=== PATIENT | female | born 1970 | race African-American/Black ===

== ENCOUNTER 2022-09-02 11:15 | Emergency (ER) | payer MEDICARE, MEDICAID, SELFPAY ==
[2022-09-02 11:36] VITALS: BP 161/85; PULSE 78; RESP 16; TEMP 36.9; O2SAT 98
--- NOTE | 2022-09-02 11:48 | ED.FEMALEGU ---
HPI - Female Genitourinary General Chief complaint: Urogenital-Female Stated complaint: UTI Time Seen by Provider: 09/02/22 11:50 Source: patient and RN notes reviewed Mode of arrival: ambulatory Limitations: no limitations History of Present Illness HPI Narrative: 51-year-old female with history of kidney transplant presents with concern for vaginal irritation, dysuria, frequency. She denies fever, aches, chills, sweats. Reports frequent urinary tract infections, her last 1 was about 4 months ago. She reports she did have unprotected sex last week, she was not aware of any exposure to any STD. MD elicited complaint: dysuria Related Data Home Medications Medication Instructions Recorded Confirmed allopurinol 100 mg tablet 200 mg PO DAILY 09/02/22 09/02/22 amlodipine 10 mg tablet 10 mg PO DAILY 09/02/22 09/02/22 calcitriol 0.25 mcg capsule 0.25 mcg PO DAILY 09/02/22 09/02/22 carvedilol 12.5 mg tablet 12.5 mg PO BID 09/02/22 09/02/22 cholecalciferol (vitamin D3) 50 50 mcg PO DAILY 09/02/22 09/02/22 mcg (2,000 unit) tablet clonidine HCl 0.1 mg tablet 0.1 mg PO TID 09/02/22 09/02/22 fluticasone propionate 50 50 mcg intranasal DAILY 09/02/22 09/02/22 mcg/actuation nasal spray,suspension gabapentin 100 mg capsule 100 mg PO DAILY 09/02/22 09/02/22 hydralazine 100 mg tablet 100 mg PO DAILY 09/02/22 09/02/22 icosapent ethyl 1 gram capsule 1 g PO BID 09/02/22 09/02/22 (Vascepa) pravastatin 10 mg tablet 10 mg PO HS 09/02/22 09/02/22 prednisone 5 mg tablet 5 mg PO DAILY 09/02/22 09/02/22 tacrolimus 1 mg capsule, 1 mg PO BID 09/02/22 09/02/22 immediate-release Allergies Allergy/AdvReac Type Severity Reaction Status Date / Time No Known Allergies Allergy Verified 09/02/22 11:43 Review of Systems Review of Systems: CONSTITUTIONAL: Denies malaise, chills, sweats, or fever. CARDIOVASCULAR: Denies chest pain, palpitations, or edema. RESPIRATORY: Denies cough or dyspnea. GASTROINTESTINAL: Denies abdominal pain, nausea, vomiting, diarrhea GENITOURINARY: Reports dysuria, frequency, urgency, vaginal irritation. Denies vaginal discharge, suprapubic pressure. Denies flank pain or hematuria. SKIN: Denies rash or itching. MUSCULOSKELETAL: Denies back pain or myalgia. All systems reviewed & are unremarkable except as noted in HPI and below PMFSH Comments At time of signature, agree with nursing past medical, surgical, social and family history. There is no relevant family history pertinent to the presenting complaint Exam Narrative: GENERAL: Well-appearing, well-nourished, and in no acute distress. HEAD: Normocephalic. EYES: PERRLA, conjunctivae clear. NECK: Supple. No lymphadenopathy CHEST: Clear to auscultation. No respiratory distress. HEART: Regular rate and rhythm. ABDOMEN: Soft, nontender upon palpation, nondistended, normal active bowel sounds, no palpable or pulsatile masses, no guarding. No CVA tenderness SKIN: Warm, dry, no rash. NEURO: Alert and oriented x3. PSYCH: Normal mood and affect Course Course Emergency Course: Patient is aware of diagnosis, understands and agrees to treatment plan. Anticipatory guidance given. Patient agrees to follow-up as directed and is aware of reasons to seek care at the emergency department. Portions of this record may have been created with voice recognition software Level of Care: Express Care Visit Vital Signs Vital signs: Vital Signs Temperature 98.5 F 09/02/22 11:36 Pulse Rate 78 09/02/22 11:36 Respiratory Rate 16 09/02/22 11:36 Blood Pressure 161/85 H 09/02/22 11:36 Pulse Oximetry 98 09/02/22 11:36 Oxygen Delivery Room Air 09/02/22 11:36 Temperature 98.5 F 09/02/22 11:36 Pulse Rate 78 09/02/22 11:36 Respiratory Rate 16 09/02/22 11:36 Blood Pressure 161/85 H 09/02/22 11:36 Pulse Oximetry 98 09/02/22 11:36 Oxygen Delivery Room Air 09/02/22 11:36 Reviewed. MDM - Female Genitourinary MDM Narrative Me
== END 2022-09-02 12:10 | disposition home or self-care (01) ==
PROVIDERS: Emergency Provider Nurse Practitioner; PCP Family Medicine
DX: N39.0 Urinary tract infection, site not specified (principal); B96.20 Unspecified Escherichia coli [E. coli] as the cause of diseases classified elsewhere; Z11.3 Encounter for screening for infections with a predominantly sexual mode of transmission
CPT/HCPCS: 81003; 87077; 87086; 87186; 87491; 87591; 87661; 99214; G0463

== ENCOUNTER 2022-11-21 16:55 | Emergency (ER) | payer MEDICARE, MEDICAID, SELFPAY ==
[2022-11-21 17:45] VITALS: BP 184/82; PULSE 87; RESP 16; TEMP 36.9; O2SAT 100
--- NOTE | 2022-11-21 18:56 | ED.FEMALEGU ---
HPI - Female Genitourinary General Chief complaint: Urogenital-Female Stated complaint: urinary issue Time Seen by Provider: 11/21/22 18:38 Source: patient and RN notes reviewed Mode of arrival: ambulatory Limitations: no limitations History of Present Illness HPI Narrative: Patient presents today complaining of right-sided low back pain times 2-3 days with urinary frequency. Denies dysuria, hematuria, or suprapubic pain. Currently rates her pain 6/10 and has tried no [id number] treatment prior to arrival. Patient has had a previous kidney transplant. Related Data Home Medications Medication Instructions Recorded Confirmed allopurinol 100 mg tablet 200 mg PO DAILY 09/02/22 09/02/22 amlodipine 10 mg tablet 10 mg PO DAILY 09/02/22 09/02/22 calcitriol 0.25 mcg capsule 0.25 mcg PO DAILY 09/02/22 09/02/22 carvedilol 12.5 mg tablet 12.5 mg PO BID 09/02/22 09/02/22 cholecalciferol (vitamin D3) 50 50 mcg PO DAILY 09/02/22 09/02/22 mcg (2,000 unit) tablet clonidine HCl 0.1 mg tablet 0.1 mg PO TID 09/02/22 09/02/22 fluticasone propionate 50 50 mcg intranasal DAILY 09/02/22 09/02/22 mcg/actuation nasal spray,suspension gabapentin 100 mg capsule 100 mg PO DAILY 09/02/22 09/02/22 hydralazine 100 mg tablet 100 mg PO DAILY 09/02/22 09/02/22 icosapent ethyl 1 gram capsule 1 g PO BID 09/02/22 09/02/22 (Vascepa) pravastatin 10 mg tablet 10 mg PO HS 09/02/22 09/02/22 prednisone 5 mg tablet 5 mg PO DAILY 09/02/22 09/02/22 tacrolimus 1 mg capsule, 1 mg PO BID 09/02/22 09/02/22 immediate-release calcitriol 0.25 mcg capsule mcg 11/21/22 Allergies Allergy/AdvReac Type Severity Reaction Status Date / Time No Known Allergies Allergy Verified 11/21/22 17:52 Review of Systems Review of Systems: CONSTITUTIONAL: Denies body aches, fever, chills, or sweats. EYES: Denies visual changes, redness, or discharge. ENT: Denies rhinorrhea, congestion, sore throat, or otalgia. CARDIOVASCULAR: Denies chest pain, palpitations, or edema. RESPIRATORY: Denies cough or dyspnea. GASTROINTESTINAL: Denies abdominal pain, nausea, vomiting, or diarrhea. GENITOURINARY:+ urinary frequency. SKIN: Denies rash, itching, or wounds. MUSCULOSKELETAL: Denies joint pain, or myalgia. + back pain NEUROLOGIC: Denies headache, numbness, tingling, or weakness. PSYCH: Denies depression or anxiety. [facility] Surgical History (Updated 11/21/22 @ 18:58 by Yen Norman, [employer], ) Kidney transplant recipient Comments At time of signature, I have reviewed and agree with nursing past medical, surgical, social and family history unless otherwise noted. Please see nursing chart for further information. There is no relevant family history pertinent to the presenting complaint Exam Narrative: GENERAL: Well-appearing, well-nourished, and in no acute distress. HEAD: Normocephalic, atraumatic. EYES: EOMI. No redness or drainage. Conjunctivae normal. ENT: Mucous membranes pink and moist. NECK: Normal AROM. CHEST: No respiratory distress. Clear to auscultation. HEART: Regular rate and rhythm. No murmur appreciated. Normal peripheral pulses. ABDOMEN: Soft, nontender, nondistended, normal active bowel sounds.-CVAT MUSCULOSKELETAL: No bony tenderness. No paraspinal muscle tenderness. EXTREMITIES: Normal range of motion. No edema. SKIN: Warm, dry, no rash. Capillary refill normal. Normal skin turgor. NEURO: No focal deficits. Alert and oriented x3. Gait steady. PSYCH: Normal affect. No signs of depression or anxiety. Course Course Level of Care: Express Care Visit Vital Signs Vital signs: Vital Signs Temperature 98.5 F 11/21/22 17:45 Pulse Rate 87 11/21/22 17:45 Respiratory Rate 16 11/21/22 17:45 Blood Pressure 184/82 H 11/21/22 17:45 Pulse Oximetry 100 11/21/22 17:45 Oxygen Delivery Room Air 11/21/22 17:45 Temperature 98.5 F 11/21/22 17:45 Pulse Rate 87 11/21/22 17:45 Respiratory Rate
== END 2022-11-21 19:03 | disposition home or self-care (01) ==
PROVIDERS: Emergency Provider Nurse Practitioner; PCP Family Medicine
DX: N30.00 Acute cystitis without hematuria (principal); Z94.0 Kidney transplant status
CPT/HCPCS: 81003; 87086; 87088; 99213; G0463

== ENCOUNTER 2024-06-17 08:46 | Emergency (ER) | payer MEDICARE, MEDICAID, SELFPAY ==
--- NOTE | 2024-06-17 08:50 | ED_ITS ---
HPI - Female Genitourinary General Chief complaint: Urogenital-Female Stated complaint: urinary issue Time Seen by Provider: 06/17/24 08:49 Source: patient Mode of arrival: ambulatory Limitations: no limitations History of Present Illness HPI Narrative: Patient is a 53-year-old female that presents with burning and urgency 2 days. Patient has history of kidney transplant 10 years ago. Denies any low back pain, fever, chills, nausea, vomiting, diarrhea. MD elicited complaint: dysuria Related Data Home Medications ?Medication ?Instructions ?Recorded ?Confirmed ?Last Taken ?Type allopurinol 100 mg tablet 200 mg PO DAILY 09/02/22 09/02/22 Unknown History amlodipine 10 mg tablet 10 mg PO DAILY 09/02/22 09/02/22 Unknown History calcitriol 0.25 mcg capsule 0.25 mcg PO DAILY 09/02/22 09/02/22 Unknown History carvedilol 12.5 mg tablet 12.5 mg PO BID 09/02/22 09/02/22 Unknown History cholecalciferol (vitamin D3) 50 50 mcg PO DAILY 09/02/22 09/02/22 Unknown History mcg (2,000 unit) tablet clonidine HCl 0.1 mg tablet 0.1 mg PO TID 09/02/22 09/02/22 Unknown History fluticasone propionate 50 50 mcg intranasal DAILY 09/02/22 09/02/22 Unknown History mcg/actuation nasal spray,suspension gabapentin 100 mg capsule 100 mg PO DAILY 09/02/22 09/02/22 Unknown History hydralazine 100 mg tablet 100 mg PO DAILY 09/02/22 09/02/22 Unknown History icosapent ethyl 1 gram capsule 1 g PO BID 09/02/22 09/02/22 Unknown History (Vascepa) pravastatin 10 mg tablet 10 mg PO HS 09/02/22 09/02/22 Unknown History prednisone 5 mg tablet 5 mg PO DAILY 09/02/22 09/02/22 Unknown History tacrolimus 1 mg capsule, 1 mg PO BID 09/02/22 09/02/22 Unknown History immediate-release calcitriol 0.25 mcg capsule mcg 11/21/22 Unknown History Allergies Allergy/AdvReac Type Severity Reaction Status Date / Time No Known Allergies Allergy Verified 11/21/22 17:52 Review of Systems Review of Systems: All systems reviewed & are unremarkable except as noted in HPI and below Constitutional: Constitutional: Denies chills, Denies fever(s), Denies headache(s), Denies malaise and Denies weakness Eyes: Eyes: Denies change in vision, Denies eye discharge and Denies irritation ENT: Denies otalgia, Denies headache(s), Denies nasal congestion, Denies nasal discharge, Denies sinus pain and Denies sore throat Cardiovascular: Cardiovascular: Denies chest pain, Denies edema, Denies palpitations and Denies dyspnea Respiratory: Respiratory: Denies cough and Denies dyspnea Gastrointestinal: Gastrointestinal: Denies abdominal pain, Denies diarrhea, Denies nausea and Denies vomiting Genitourinary: Genitourinary: Denies hematuria, Reports nocturia, Reports dysuria, Denies flank pain and Denies urinary urgency Musculoskeletal: Musculoskeletal: Denies back pain and Denies numbness Integumentary/Breasts: Skin/Breast: Denies pruritus and Denies rash Neurologic: Denies headache(s), Denies numbness and Denies weakness Psychiatric: Psychiatric: Reports no additional psychiatric complaints Endocrine: Endocrine: Denies palpitations PMFSH Surgical History Surgical History Kidney transplant recipient Comments At time of signature, agree with nursing past medical, surgical, social and family history. There is no relevant family history pertinent to the presenting complaint. Exam Const: General: cooperative, healthy appearing, comfortable, no acute distress and well nourished Nutritional Appearance: well nourished Orientation/consciousness: patient oriented x3 HENMT: Head: normocephalic and atraumatic Ears: external ears normal Face/Nose/Sinus: Normal external nose present, Normal nares present and normal facial exam Face and sinus: normal facial exam Eyes: General: appearance normal, both eyes and all related structures Pupils: Equal, round and reactive pupils present EOM: EOMs intact bilaterally Neck: Neck: normal visual inspection, full ROM and supple Chest: Chest palpation & inspection: normal inspection of the chest Resp: Effort & Inspection: normal respiratory effort and able to speak in complete sentences Cardio: Rate: regular rate Rhythm: regular rhythm GI: Inspection: normal to inspection GI Palp: No abdominal tenderness and Yes Soft to palpation : General: Yes no CVA tenderness Back/Spine/Pelvis: Back: no CVA tenderness Skin: General skin exam: normal color and no rashes or lesions noted Neuro: General: patient oriented x3 and moves all extremities Cranial nerves: Yes Equal, round and reactive pupils present Extrem: General: normal to inspection and full ROM Psych: Appearance: grossly normal and well kempt Course Course Emergency Course: Patient is aware of diagnosis, understands and agrees to treatment plan. Anticipatory guidance given. Patient agrees to follow-up as directed and is aware of reasons to seek care at the emergency department. Portions of this record may have been created with voice recognition software Level of Care: Express Care Visit Vital Signs Vital signs: Vital Signs Temperature 36.7 C 06/17/24 08:56 Pulse Rate 73 06/17/24 08:56 Respiratory Rate 16 06/17/24 08:56 Blood Pressure 155/78 H 06/17/24 08:56 Pulse Oximetry 100 06/17/24 08:56 Oxygen Delivery Room Air 06/17/24 08:56 Temperature 36.7 C 06/17/24 08:56 Pulse Rate 73 06/17/24 08:56 Respiratory Rate 16 06/17/24 08:56 Blood Pressure 155/78 H 06/17/24 08:56 Pulse Oximetry 100 06/17/24 08:56 Oxygen Delivery Room Air 06/17/24 08:56 Reviewed MDM - Female Genitourinary MDM Narrative Medical decision making narrative: Exam findings and UA show probable UTI; patient is non-toxic appearing and is in no distress. No CMT, adnexal tenderness, or evidence of pelvic etiology. Patient is appropriate for outpatient treatment and follow-up. Differential Diagnosis Differential diagnosis: Likely urinary tract infection, bacterial vaginosis, trichomoniasis, cervicitis, vaginitis and cystitis Medical Records Attestation: I reviewed the patient's medical records. Lab Data Attestation: I reviewed the patient's lab results. Labs: Lab Results 06/17/24 Range/Units 09:07 POC Urine Color Yellow POC Urine Clarity Cloudy POC Urine pH 6.0 POC Ur Specif [place] 1.020 POC Urine Protein 3+ (Negative) POC Ur Glucose (UA) Negative (Negative) POC Urine Ketones Negative (Negative) POC Urine Blood Negative (Negative) POC Urine Nitrite Positive (Negative) POC Urine Bilirubin Negative (Negative) POC Urine Urobilinogen 0.2 POC U Leukocyte Esteras 1+ (Negative) Discharge Plan Discharge Clinical Impression: Urinary tract infection Qualifiers: Urinary tract infection type: acute cystitis Hematuria presence: without hematuria Qualified Code(s): N30.00 - Acute cystitis without hematuria Patient Disposition: Home, Self-Care Condition: Stable Instructions: Urinary Tract Infection in Women (ED) Additional Instructions: We will send a urine culture to the lab, based on your symptoms and urine dip we will start treatment today. If culture comes back and bacteria is not susceptible to antibiotic, your prescription may change. Your symptoms should improve within a day of starting antibiotics, but you should finish all the antibiotic pills you get. Otherwise your infection might come back Continue with increased water intake. Take Tylenol or ibuprofen as needed for pain or fever. Follow-up with primary care provider for urine recheck or see ER visit if condition worsens with high fever, nausea, vomiting, severe back pain Your blood pressure was elevated above 120/80 today at Urgent Care. This puts you above the threshold for follow up visit with a primary care provider. High blood pressure does not usually cause any symptoms, however it may lead to kidney failure, stroke, heart disease just to name a few if untreated . Many people are anxious when seeing a provider or nurse. As a result, you are not diagnosed with hypertension at this time unless your blood pressure is persistently high at two office visits at least one week apart. Some things that can help lower blood pressure are lifestyle modifications, such as light exercise, decreased salt in diet, and weight loss. It is important to follow up with a PCP about this within 1 week. Patient Language: Cambodian Prescriptions: New sulfamethoxazole-trimethoprim 800-160 mg tablet 1 tablet PO Q12H 5 Days Qty: 10 0RF No Action clonidine HCl 0.1 mg tablet 0.1 mg PO TID carvedilol 12.5 mg tablet 12.5 mg PO BID prednisone 5 mg tablet 5 mg PO DAILY allopurinol 100 mg tablet 200 mg PO DAILY pravastatin 10 mg tablet 10 mg PO HS amlodipine 10 mg tablet 10 mg PO DAILY hydralazine 100 mg tablet 100 mg PO DAILY gabapentin 100 mg capsule 100 mg PO DAILY fluticasone propionate 50 mcg/actuation spray,suspension 50 mcg INTRANASAL DAILY tacrolimus 1 mg capsule 1 mg PO BID calcitriol 0.25 mcg capsule 0.25 mcg PO DAILY cholecalciferol (vitamin D3) 50 mcg (2,000 unit) tablet 50 mcg PO DAILY icosapent ethyl [Vascepa] 1 gram capsule 1 g PO BID calcitriol 0.25 mcg capsule cephalexin 500 mg capsule 500 mg PO Q6H 7 Days Qty: 28 0RF Follow-up/Referrals: Vitor,Bora Langston MD [Primary Care Provider] - 3 Days Stand Alone Forms: Work/School Release IP Time of Disposition: 09:28
[2024-06-17 08:56] VITALS: BP 155/78; PULSE 73; RESP 16; TEMP 36.7; O2SAT 100
[2024-06-17 09:15] LABS: EDUAAPPEAR Cloudy; EDUABILI Negative (Negative); EDUABLOOD Negative (Negative); EDUACOLOR1 Yellow; EDUAGLUCOSE Negative (Negative); EDUAKETONE Negative (Negative); EDUALEUKO 1+ (Negative); EDUANITRATE Positive (Negative); EDUAPROTEIN 3+ (Negative); EDUAUROBILI 0.2
== END 2024-06-17 09:34 | disposition home or self-care (01) ==
PROVIDERS: Emergency Provider Nurse Practitioner Family; PCP Family Medicine
DX: N30.00 Acute cystitis without hematuria (principal); B96.20 Unspecified Escherichia coli [E. coli] as the cause of diseases classified elsewhere; Z94.0 Kidney transplant status
CPT/HCPCS: 81003; 87086; 87186; 99213; G0463